=== PATIENT | male | born 1975 | race Caucasian/White ===

== ENCOUNTER 2021-06-28 11:48 | Emergency (ER) | payer OTHER ==
[2021-06-28 12:58] VITALS: BP 133/99; PULSE 93; TEMP 98.3; BMI 33.0
[2021-06-28] MEDS ORDERED: CASIRIVIMAB/IMDEVIMAB 10 ML in SODIUM CHLORIDE 100 ML IVPB ONE (13:23)
== END 2021-06-28 17:05 | disposition home or self-care (01) ==
LOC: JCOVINFU 11:48
DX: U07.1 COVID-19 (principal)
CPT/HCPCS: 99284-25; Q0240